=== PATIENT | male | born 1965 | race Caucasian/White ===

== ENCOUNTER → 2017-02-01 | Outpatient (CLI) | payer OTHER ==
--- NOTE | 2017-02-01 11:11 | RADIOLOGY REPORT PS360 ---
HIP RT 2-3V W/PELVIS IF PERFOR HISTORY: SI JOINT DYSFUNCTION Patient Age: 51 years: Male Ordering Physician: Rico Calderon MD TECHNIQUE: AP and frog-leg view right hip with AP pelvis COMPARISON : lumbar spine series from today but no studies prior to today FINDINGS Right femoral head and neck are intact. Bones well mineralized. Right hip joint space well maintained. Subtle ridging at the superior acetabulum seen bilaterally appears within normal limits.. No remarkable particular findings on plain film. AP pelvis. Osseous pelvis is intact SI joints unremarkable and normal on these studies as well as the lumbar spine series. Sacrum intact. Numerous benign phleboliths pelvic basin most evident the left pelvic basin. The left hip contains a small bone island at subcapital region inferiorly, as well as a small herniation pit. 7 mm at superior subcapital region. These are not of clinical significance. IMPRESSION: Right hip intact. SI joints and sacrum unremarkable Osseous pelvis intact. Minor incidental observations in text
--- NOTE | 2017-02-01 11:17 | RADIOLOGY REPORT PS360 ---
LUMBAR SPINE 5 VIEWS HISTORY: SI JOINT DYSFUNCTION Patient Age: 51 years: Male Ordering Physician: Rico Calderon MD 5TECHNIQUE: 5 view lumbar spine series. COMPARISON :AP pelvis and right hip from today otherwise no previous studies. FINDINGS The vertebral bodies appear intact with no compression fracture. Disc space narrowing is most pronounced to the right at L2/3 and resultsin & associated with a levoscoliosis of the L-spine most pronounced at at this level. Marginal osteophytes most evident the right L2/3. Other disc spaces are well-maintained. The lumbar spine The bones well mineralized. Pedicles transverse processes satisfactory. . marginal osteophyte lower T-spine also noted for example at 2 the right at T10-11 and to the left at T9/10. Facets appear intact with only minor degenerative facet changes most evident to the right and L2/3 and L3/4. SI joints unremarkable on this study is well as the right hip study.. Slight contour irregularity of the smaller left 12th rib most likely reflects old trauma or slight congenital variation. Doubt acute feature here. IMPRESSION: Prominent space narrowing to the right at the L2/3 disc level. Associated /resulting mild levoscoliosis at this level L-spine. SI joints an sacrum unremarkable on this and right hip study..
== END ==
LOC: RAD 09:51
DX: M53.3 Sacrococcygeal disorders, not elsewhere classified (principal)

== ENCOUNTER 2017-02-10 00:42 | Emergency (ER) | payer OTHER ==
[~2017-02-10] VITALS: Ht 172.7 cm; Wt 99.8 kg
[2017-02-10] MEDS ORDERED: HYDROCHLOROTHIA25 M1 PO (00:57)
[2017-02-10] MEDS ORDERED: METOPROLOL SUCC50 M1 PO (00:58)
[2017-02-10] MEDS ORDERED: LISINOPRIL 20MG20 MG PO (00:58)
[2017-02-10] MEDS ORDERED: SIMVASTATIN20 MG PO (00:59)
[2017-02-10 01:16] LABS: URINE BILIRUBIN - DIPSTICK NEGATIVE (NEG); URINE BLOOD NEGATIVE (NEG)
[2017-02-10 01:17] LABS: URINE SQUAMOUS CELLS OCC #/hpf (OCC)
--- NOTE | 2017-02-10 01:27 | Emergency Room Report ---
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 N Clinical Suspician of Infection? N Mental Status: 1 - Regular (Normal Baseline) Sepsis Risk:Low Sepsis Risk Have you (or family members/close friends) recently traveled outside the [place]? N If Yes, where/when: Have you had exposure to infectious disease within the past month? N TB? Other? Specify: Source patient, RN notes reviewed, family, old records Exam Limitations no limitations Comment pt with rt sided back pain with rad to rt lower leg - he has no acute trauma and no cauda equina sx- pt with no sig response to prednisone and nsaif Cardiac Chest Pain Chest pain indicative of cardiac No Timing/Duration this evening ALLERGIES Coded Allergies: No Known Allergies (03/01/15) Home Medications Reported Medications HYDROCHLOROTHIAZIDE (Hydrochlorothiazide) 25 MG PO DAILY Metoprolol Succinate Xl (Metoprolol ER 50MG) 50 MG PO DAILY LISINOPRIL (Lisinopril) 20 MG PO DAILY Simvastatin 20 MG PO DAILY History Medical History General CAD? No Angina: No [place]: No Hypertension? No Hyperlipidemia? No CHF? No DVT? No PE? No COPD? No Asthma? No Anemia? No GERD? No Gastric ulcers? No GI Bleed? No Hernia? No Thyroid Problems? No Hypothyroidism? No CVA? No Seizures? No Diabetes? No Renal Insuffiency? No End Stage Renal Disease? No UTI? No Stones? No BPH? No GB Disease: No Nephritic Syndrome? No Asplenia? No Hepatitis? No Sickle Cell Disease? No Arthritis? No Migraines? No Cataracts? No Glaucoma? No MRSA? No HIV? No TB? No Anxiety? No Depression? No Cancer? No More? No Immunization Hx DT/Tetanus NOT SURE Surgical Hx Previous Surgery?N Social History Smoking Hx Smoker: Never Smoker Tobacco: No Alcohol Alcohol: Yes Drugs none Review of Systems All Other Systems Reviewed and Negative Constitutional denies fever Eyes denies drainage ENT denies: ear discharge, epistaxis, throat pain. Respiratory denies cough, denies shortness of breath, denies wheezing Cardiovascular denies chest pain, denies syncope Gastrointestinal denies abdominal pain, denies diarrhea, denies vomiting Genitourinary denies: dysuria, frequency, hesitancy, hematuria. Musculoskeletal see HPI, back pain, denies joint pain, denies joint swelling, denies neck pain Skin denies rash Psychiatric/Neurological denies headache, denies seizure Physical Exam Vital Signs Vital Signs Date Time Temp Pulse Resp B/P Pulse O2 O2 Flow FiO2 Ox Delivery Rate 02/10 0047 97.8 67 18 153/91 98 - WBC >12,000 or <4,000 or 10% bands? 2 or more SIRS Criteria Met? B/P:153/91 MAP:111 Creatinine >2.0? UA output<0.5ml/kg/hr for 2 hrs? Platelet count >100,000? Lactate >2.0mmol/1? INR >1.2 or PTT > than 60 sec? Evidence of Organ Dysfunction? Provider documented clinical suspician of infection? N Sepsis Criteria Count: 0 Sepsis Risk: Low Sepsis Risk General Appearance no apparent distress Eye Exam - bilateral eye PERRL, bilateral eye EOMI Ear, Nose, Throat normal ENT inspection Neck supple Respiratory Status No: respiratory distress. 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 No Results/Orders Laboratory Tests 02/10/17 0105: Urine Color YELLOW, Urine Appearance CLEAR, Urine pH 6.0, Ur Specific Emily 1.025, Urine Protein NEGATIVE, Urine Ketones TRACE H, Urine Blood NEGATIVE, Urine Nitrate NEGATIVE, Urine Bilirubin NEGATIVE, Urine Urobilinogen 1.0, Ur Leukocyte Esterase NEGATIVE, Urine RBC RARE, Urine WBC OCC, Ur Squamous Epith Cells OCC, Amorphous Sediment TRACE, Urine Glucose NEGATIVE Orders Procedure Date/time Status URINALYSIS/COMPLETE 02/107 Complete Departure Departure Time of Disposition 0105 Disposition DC Home or Self Care(routine) Clinical Impression Primary Impression: Lumbar back pain with radiculopathy affecting right lower extremity Condition STABLE Referrals Rico Calderon MD (Family) Patient Instructions DI for Lumbar Radiculopathy Additional Instructions call pcp today for follow up Discharge Counseling Counseled pt/family regarding diagnosis, test results, medications/RX, follow up needs ED Critical Care Critical Care No at 0126
[2017-02-10 02:05] VITALS: BP 176/110
== END 2017-02-10 02:07 | disposition home or self-care (01) ==
LOC: ER 00:42
PROVIDERS: Emergency Medicine
DX: M54.16 Radiculopathy, lumbar region (principal)
CPT/HCPCS: J0595

== ENCOUNTER → 2017-04-04 | Outpatient (CLI) | payer OTHER ==
[~2017-04-04] MED LIST: HYDROCHLOROTHIA25 M1 PO; LISINOPRIL 20MG20 MG PO; METOPROLOL SUCC50 M1 PO; SIMVASTATIN20 MG PO
--- NOTE | 2017-04-05 06:47 | RADIOLOGY REPORT PS360 ---
MRI-L-SPINE W/O, MRI-3D RENDERING/MYELOGRAM HISTORY: Right-sided low back pain with pain and numbness and tingling in the right leg LOW BACK PAIN ORDERING PHYSICIAN: Rico Calderon MD PATIENT AGE: 51 years COMPARISON: Radiograph of 02/01/2017 TECHNIQUE: Standard multiplanar multiecho sequences are performed without contrast. 3-D MIP and myelographic images are also rendered and reviewed FINDINGS: There is normal alignment. The spinal cord ends at the L1 level. There is mild degenerative disc disease at T11-T12 and T12-L1. L1-L2: Mild facet and ligamentum flavum hypertrophic change. L2-L3: There is degenerative disc disease with prominent right-sided bridging osteophytes and bulging disc along with facet and ligamentum flavum hypertrophy greater on the right with severe right-sided foraminal narrowing. Type II endplate changes are present on the right. There is minimal anterolisthesis of L2.. There is also a small central disc herniation with minimal inferior extrusion. This is very slightly eccentric toward the left. There is moderate left-sided foraminal narrowing as well. L3-L4: Minimal bulging disc with mild facet and ligamentum hypertrophy. L4-L5: Minimal bulging disc with mild facet and ligamentum hypertrophy L5-S1: Mild facet and ligamentum flavum hypertrophy.. There is mild lumbar scoliosis convex left. IMPRESSION: 1. Degenerative disc disease at L2-L3 with prominent right-sided bridging osteophytes and bulging disc along with facet and ligamentum flavum hypertrophy greater on the right with severe right-sided foraminal narrowing. Type II endplate changes are present on the right. There is minimal anterolisthesis of L2.. 2. Small central disc herniation at L2-L3 with minimal inferior extrusion. This is very slightly eccentric toward the left. There is moderate left-sided foraminal narrowing as well 3. Other mild degenerative changes as detailed above with mild scoliosis convex left.
== END ==
LOC: RAD 07:59
DX: M54.41 Lumbago with sciatica, right side (principal)